=== PATIENT | female | born 1990 | race Caucasian/White ===

== ENCOUNTER 2018-12-07 15:31 | Emergency (ER) | payer OTHER ==
[~2018-12-07] VITALS: Ht 149.9 cm; Wt 81.8 kg
[2018-12-07 15:40] VITALS: TEMP 98.1
[2018-12-07 17:31] LABS: COLLECTION METHOD CLEAN CATCH
[2018-12-07 17:37] LABS: MUCOUS Present /lpf; SQUAMOUS EPITHELIAL 0-2 /hpf; URINE BACTERIA None Seen /hpf
[2018-12-07 17:42] LABS: PH 6 (5-8); URINE APPEARANCE Clear; URINE BILIRUBIN Negative (NEGATIVE); URINE BLOOD Negative (NEGATIVE); URINE COLOR Yellow; URINE GLUCOSE Negative (NEGATIVE); URINE KETONE Negative (NEGATIVE); URINE LEUKOCYTE ESTERASE Negative (NEGATIVE); URINE NITRATE Negative (NEGATIVE); URINE PROTEIN(semi-quant) Negative (NEGATIVE)
[2018-12-07 18:07] VITALS: BP 123/89; PULSE 78
== END 2018-12-07 18:00 | disposition home or self-care (01) ==
LOC: COL.ER 15:31
PROVIDERS: Physician Assistant
DX: N93.9 Abnormal uterine and vaginal bleeding, unspecified (principal); Z90.89 Acquired absence of other organs

== ENCOUNTER 2018-12-08 09:59 | Emergency (ER) | payer OTHER ==
[~2018-12-08] VITALS: Ht 149.9 cm; Wt 86.4 kg
[2018-12-08 10:03] VITALS: TEMP 98.2
[2018-12-08 10:30] VITALS: BP 126/84
[2018-12-08 10:31] LABS: BASO % 0.4 % (0.0-2.0); EOS # 0.1 (0.0-0.7); EOS % 0.8 % (0-4.0); GRAN # 4.9 (1.4-6.5); GRAN % 57.4 % (42.2-75.2); HEMATOCRIT 41.9 % (37.0-47.0); HEMOGLOBIN 14.1 g/dl (12.5-16.0); LYMPH # 2.9 (1.2-3.4); LYMPH % 33.8 % (20.0-51.0); MEAN CELL VOLUME 87 fl (80.0-100.0); MEAN CORPUSCULAR HEMOGLOBIN 29 pg (27.0-31.0); MEAN CORPUSCULAR HGB CONC 34 g/dl (33.0-37.0); MEAN PLATELET VOLUME 9.1 fl (7.4-10.4); MONO # 0.6 (0.1-0.6); MONO % 7.4 % (1.7-9.3); PLATELET COUNT 335 K/mm3 (130-400); RED BLOOD COUNT 4.81 M/mm3 (4.10-5.30); REDCELL DISTRIBUTION WIDTH-CV 12.7 % (11.5-14.5)
[2018-12-08 11:07] VITALS: PULSE 88
== END 2018-12-08 11:07 | disposition home or self-care (01) ==
LOC: COL.ER 09:59
PROVIDERS: Physician Assistant
DX: N92.0 Excessive and frequent menstruation with regular cycle (principal)

== ENCOUNTER 2020-01-15 23:38 | Emergency (ER) | payer OTHER ==
[~2020-01-15] VITALS: Ht 149.9 cm; Wt 86.4 kg
[2020-01-15 23:49] VITALS: TEMP 98.2
[2020-01-16 00:39] VITALS: BP 139/86; PULSE 89
== END 2020-01-16 00:39 | disposition home or self-care (01) ==
LOC: COL.ER 23:38
DX: M54.2 Cervicalgia (principal); V49.9XXA Car occupant (driver) (passenger) injured in unspecified traffic accident, initial encounter